=== PATIENT | male | born 1960 | race Caucasian/White ===

== ENCOUNTER → 2022-04-05 08:57 | Outpatient (BNVA) | payer OTHER, SELFPAY | PROVIDERS: Visit Provider Physician Assistant Medical | DX: R20.2 Paresthesia of skin (principal); M54.9 Dorsalgia, unspecified | CPT/HCPCS: 72100; 99203 ==

== ENCOUNTER → 2022-04-08 08:09 | Outpatient (BNVA) | payer OTHER, SELFPAY | PROVIDERS: Visit Provider Internal Medicine | DX: M54.9 Dorsalgia, unspecified (principal); R20.2 Paresthesia of skin | CPT/HCPCS: 99213 ==

== ENCOUNTER → 2022-04-15 07:51 | Outpatient (BNVA) | payer OTHER, SELFPAY | PROVIDERS: Visit Provider Internal Medicine | DX: M54.42 Lumbago with sciatica, left side (principal) | CPT/HCPCS: 99213 ==

== ENCOUNTER → 2022-04-30 07:53 | Outpatient (BNVA) | payer OTHER, SELFPAY | PROVIDERS: Visit Provider Internal Medicine | DX: M54.42 Lumbago with sciatica, left side (principal) | CPT/HCPCS: 99213 ==

== ENCOUNTER 2022-05-03 10:27 | Outpatient (REF) | payer OTHER, SELFPAY ==
--- NOTE | ~2022-05-03 | MR_ITS ---
EXAMINATION: MR LUMBAR SPINE WITHOUT CONTRAST CLINICAL INFORMATION: Bilateral lower extremity pain and numbness. COMPARISON: Lumbar spine radiographs 02/02/2023. TECHNIQUE: MRI of the lumbar spine was obtained using routine sequences without contrast. FINDINGS: There is grade 2 anterolisthesis of L4 on L5 that appears to be related to advanced facet degenerative changes at this level. Alignment is otherwise normal. Vertebral heights are preserved. There is minimal bone marrow edema involving the upper anterior corners of the L2 and L4 vertebral bodies. There is loss of intervertebral disc height and T2 signal intensity at multiple levels related to disc degeneration. The tip of the conus medullaris is located at L2. No mass effect on the conus. Visualized distal cord signal intensity is normal. At L1-L2 there is a slightly bulging disc. Bilateral facet degenerative change. No canal stenosis. No mass effect on the traversing or foraminal nerve roots. At L2-L3 there is a diffusely bulging disc. Bilateral facet degenerative change. Moderate canal stenosis. No mass effect on the traversing or foraminal nerve roots. At L3-L4 there is a diffusely bulging disc. Bilateral facet degenerative change. Moderate canal stenosis. Partial effacement of perineural fat with mild mass effect on the right L3 foraminal nerve root. At L4-L5 there is a large left foraminal protrusion superimposed upon a pseudodisc bulge. Advanced facet degenerative change. Extreme canal stenosis. Severe compression of the left L4 foraminal nerve root and moderate compression of the right L4 foraminal nerve root. At L5-S1 there is a bulging disc. Bilateral facet degenerative change. No canal stenosis. No mass effect on the traversing or foraminal nerve roots. Limited visualization of the retroperitoneal anatomy reveals no abnormal finding. Psoas and paraspinal muscle groups are symmetric. MR/MR lumbar spine wo con IMPRESSION: There is multilevel degenerative spondylosis of the lumbar spine with grade 2 anterolisthesis of L4 on L5 related to advanced facet degenerative changes at this level. At L4-L5 there is a large left foraminal protrusion superimposed upon a pseudodisc bulge causing extreme canal stenosis. There is also severe compression of the left L4 foraminal nerve root and moderate compression of the right L4 foraminal nerve root level. Moderate canal stenosis at L2-L3 and L3-L4.
== END 2022-05-03 10:28 | disposition home or self-care (01) ==
LOC: HO.MRI 10:27
PROVIDERS: Visit Provider Internal Medicine
DX: M79.605 Pain in left leg (principal); M79.604 Pain in right leg; R20.0 Anesthesia of skin
CPT/HCPCS: 72148

== ENCOUNTER 2022-05-04 10:00 | Outpatient (RCR) | payer OTHER, SELFPAY ==
--- NOTE | 2022-04-21 10:56 | MHC.PT.EP ---
[facility] [place] Office [place] Office [place] Office [address] [place] [address] [phone] F: [phone] F: [phone] F: [phone] F: [phone] Physical Therapy Plan of Care Date of Evaluation: Date of Surgery: Diagnosis: back pain, left leg sciatica Assessment: Patient is a 61 year old R handed male who presents with s/s consistent with sciatica, low back pain. 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 Patient past medical history includes back surgery 30 years ago. Current impairments include pain, flexibility, gait mechanics, posture, ROM, strength, activity tolerance and functional mobility. Functional limitations include decreased ability to transfers, walk, stand, lift, bend, and sleep. Patient is motivated with good rehab potential. Skilled PT will address impairments and functional limitations in order to achieve goals. Frequency and Duration: The patient will be seen 2x/week for 5 weeks Short Term Goals: I with HEP - 2 weeks Pain free full AROM - 3 weeks Able to walk 20 minutes without increased pain - 3 weeks Fabrication Lead Goals: TTP absent in piriformis - 5 weeks symmetrical gait patterns - 5 weeks Oswestry 10% or less - 5 weeks Pain free return to all work activities - 5 weeks Treatment Plan: Modalities to reduce pain, spasms and effusion. Manual therapy to restore motion and function. Therapeutic exercise to improve strength and flexibility. Neuromuscular re-education for posture and balance. Therapeutic activities to return to functional activities of daily living. Electronically signed by: Clint Zamora, PT Please sign and return to therapist. Thank you for your referral.
--- NOTE | 2022-08-02 08:56 | MHC.PT.DC ---
[facility] [place] Office [place] Office [place] Office [address] [place] [address] [phone] F: [phone] F: [phone] F: [phone] F: [phone] Physical Therapy Discharge Report Diagnosis: back pain, left leg sciatica Date of Surgery: Date of Evaluation: 04/21/22 Date of Discharge: 06/08/22 Treatments to Date: 4 Cancellations to Date: No Shows to Date: Discharge Status: Discharge Summary: Hold on PT due to MRI findings and lack of improvement. 05/04/22: pt has been feeling about the same with s/s. no change since last visit. MRI yesterday, awaiting results. 04/28/22: pt with reduced s/s since last visit. we added hip strength and SNG. no adverse reactions. MRI on Tuesday. 04/26/22: pt had painful response after last visit. we changed approach and he experience much less pain and improved ease of transfers. Patient is a 61 year old R handed male who presents with s/s consistent with sciatica, low back pain. 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 Patient past medical history includes back surgery 30 years ago. Current impairments include pain, flexibility, gait mechanics, posture, ROM, strength, activity tolerance and functional mobility. Functional limitations include decreased ability to transfers, walk, stand, lift, bend, and sleep. Patient is motivated with good rehab potential. Skilled PT will address impairments and functional limitations in order to achieve goals. Electronically signed by: Clint Zamora, PT Please sign and return to therapist. Thank you for your referral.
== END 2022-08-02 09:15 | disposition home or self-care (01) ==
LOC: HO.PTCHIC 10:00
PROVIDERS: Visit Provider Internal Medicine
DX: M54.50 Low back pain, unspecified (principal); M54.32 Sciatica, left side
CPT/HCPCS: 97110; 97140; 97161

== ENCOUNTER → 2022-05-11 12:57 | Outpatient (BNVA) | payer OTHER, SELFPAY | PROVIDERS: Visit Provider Internal Medicine | DX: M51.26 Other intervertebral disc displacement, lumbar region (principal); M48.05 Spinal stenosis, thoracolumbar region | CPT/HCPCS: 99213 ==

== ENCOUNTER → 2022-05-27 08:19 | Outpatient (BNVA) | payer OTHER, SELFPAY | PROVIDERS: Visit Provider Internal Medicine | DX: M51.16 Intervertebral disc disorders with radiculopathy, lumbar region (principal) | CPT/HCPCS: 99213 ==

== ENCOUNTER → 2022-06-24 14:16 | Outpatient (BNVA) | payer OTHER, SELFPAY | PROVIDERS: Visit Provider Internal Medicine | DX: M48.05 Spinal stenosis, thoracolumbar region (principal) | CPT/HCPCS: 99213 ==

== ENCOUNTER 2024-06-18 12:11 | Outpatient (REF) | payer BC, SELFPAY ==
[2024-06-18 16:08] LABS: Appearance Urine Clear; Color Urine Dark Yellow; Glucose Urine UA Negative (Negative); Leukocyte Esterase Urine Trace (Negative); Nitrite Urine Negative (Negative); Specific Gravity - Urine 1.025 (1.005-1.025); UMIC TRIGGER UACC YES; Urine Blood Negative (Negative); Urine Ketones Trace mg/dL (Negative); Urine Protein Trace mg/dL (Neg-Trace)
[2024-06-18 16:09] LABS: MANUAL DIFF FLAG NO
[2024-06-18 16:21] LABS: Basophils Percent Auto 0.4 % (0-2); Eosinophils Absolute Auto 0.1 X10*3/uL (0.0-0.4); Eosinophils Percent Auto 0.6 % (0-4); Hematocrit 47.6 % (42.0-52.0); Hemoglobin 16.4 g/dl (14.0-18.0); Imm Gran Abs Auto 0.04 X10*3/uL (0.00-0.03); Imm Gran Pct Auto 0.4 % (0.0-0.4); Lymphocytes Absolute Auto 2.3 X10*3/uL (1.2-4.9); Lymphocytes Percent Auto 22.7 % (20-40); Mean Corpuscular HGB Conc 34.5 g/dl (31.0-36.0); Mean Corpuscular Hemoglobin 31.7 pg (27.0-33.0); Mean Corpuscular Volume 91.9 fL (80.0-98.0); Mean Platelet Volume 9.7 fL (9.4-12.4); Monocytes Percent Auto 9.4 % (2-11); Neutrophils Absolute Auto 6.7 x10*3/uL (2.0-8.3); Neutrophils Percent Auto 66.5 % (45-73); Platelet Count 373 X10*3/uL (160-400); Red Blood Count 5.18 X10*6/uL (4.60-5.80); Red Cell Distribution Width 14.3 % (11.0-16.0); White Blood Count 10.1 X10*3/uL (4.8-10.8)
[2024-06-18 16:52] LABS: Alanine Aminotransferase 19 U/L (0-40); Albumin Level 4.2 g/dL (3.5-5.0); Alkaline Phosphatase 73 U/L (39-117); Anion Gap 14 (12-20); Aspartate Amino Transferase 25 U/L (5-37); Bilirubin Total 0.5 mg/dL (0.0-1.0); Blood Urea Nitrogen 11 mg/dL (9-16); Calcium 9.2 mg/dL (8.4-10.2); Carbon Dioxide 24 mmol/L (22-29); Chloride 105 mmol/L (96-108); Cholesterol 222 mg/dL (<200); Estimated Glomerular Filt Rate > 60; Glucose Fasting 102 mg/dL (60-99); HDL Cholesterol 74 mg/dL (>40); LDL Cholesterol Calculated 134 mg/dL (<100); Sodium 139 mmol/L (135-145); Triglycerides 72 mg/dL (<150)
[2024-06-18 16:54] LABS: TSH reflex Free T4 0.98 uIU/mL (0.32-4.0)
[2024-06-18 19:16] LABS: Bacteria Urine None Seen (None Seen); Hyaline Casts Urine 0-2 /LPF (0-2); RBC Urine 0-2 /HPF (0-2); Squamous Epithelial Cell Urine 0-2 /HPF (0-2); WBC Urine 0-5 /HPF (0-5)
== END 2024-06-18 12:12 | disposition home or self-care (01) ==
LOC: HO.HMGCLDS 12:11
PROVIDERS: PCP Nurse Practitioner Family; Visit Provider Nurse Practitioner Family
DX: Z00.01 Encounter for general adult medical examination with abnormal findings (principal); F17.210 Nicotine dependence, cigarettes, uncomplicated; Z12.5 Encounter for screening for malignant neoplasm of prostate
CPT/HCPCS: 36415; 80053; 80061; 81001; 84153; 84443; 85025; 96127

== ENCOUNTER 2024-06-18 12:11 | Outpatient (AMB) | payer BC, SELFPAY ==
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
[2024-06-18 12:44] VITALS: BP 136/78; PULSE 84; RESP 18; TEMP 36.8; O2SAT 95; BMI 25.8
== END 2024-06-18 13:17 | disposition home or self-care (01) ==
LOC: HO.HMCC 12:11
PROVIDERS: Visit Provider Nurse Practitioner Family
DX: Z12.11 Encounter for screening for malignant neoplasm of colon (principal); Z00.01 Encounter for general adult medical examination with abnormal findings; F17.200 Nicotine dependence, unspecified, uncomplicated; Z12.5 Encounter for screening for malignant neoplasm of prostate

== ENCOUNTER 2024-10-16 10:21 | Outpatient (AMB) | payer OTHER, SELFPAY ==
--- NOTE | 2024-10-16 10:25 | A.OFFVIS_ITS ---
Vital Signs 10/16/24 10:26 Height 5 ft 6 in Weight 166 lb BMI 26.8 BP 122/61 Blood Pressure Location Lt brachial Position Sitting Pulse 88 Pulse Oximetry (%) 98 Oxygen Delivery Method Room Air Intake Visit Reasons: Colonoscopy Screening Intake Note: Patient new consult for 1st pre Colonoscopy screening. Patient denies any GI issues for today. [employer] Day Worker Required: No Accompanied by: Spouse Allergies No Known Allergies Allergy (Verified 10/16/24 10:25) Medication List - Last Reconciled 10/16/24 by Apple Mares CNP No Known Home Meds HPI HPI Colonoscopy Screening: Details: Patient is a 63-year-old male with PMH of nicotine dependence. Referred by PCP colonoscopy screening This is his initial colonoscopy, as he has not had previous colorectal e xaminations such as fecal occult blood testing. The patient reports having bowel movements three times each morning. He characterizes them as soft and normal from his perspective and denies any blood presence in his stools, ongoing stomach pain, or gastrointestinal discomfort such as nausea and vomiting. He maintains a baseline weight range between 159- 155 lbs but has noticed some weight gain, attributing it to less meticulous eating habits. In terms of gastroesophageal reflux complaints, the patient occasionally experiences heartburn triggered by food intake and rarely undergoes episodes of regurgitation. A recent regurgitation episode occurred during sleep, which the patient associates with alcohol consumption. He denies regular issues with swallowing and reports a stable appetite, with no recent fever or illness history. The patient is not known to take any medication routinely for reflux, asserting that symptoms typically resolve independently. Patient denies: fever/chills, n/v, appetite changes, dysphasia, unintentional wt loss, ab pain or melena/hematochezia. 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 - family hx as below -denies personal hx of CA -denies significant cardiopulmonary history -tolerated anesthesia in the past without difficulty. PFSH Medical History (Updated 10/16/24 @ 11:02 by Apple Mares CNP) Acid reflux Hyperlipemia Surgical History History of back surgery Family History (Updated 10/16/24 @ 10:42 by Apple Mares CNP) Father Substance use disorder Liver disease Mother Pancreatic disease Diverticulosis Social History Housing: House Patient Tobacco Use Status: Current everyday Tobacco user Tobacco use type: Cigarette Cigarettes Per Day: 20 e-Cigarette/Vaping Use: Never Used service: No Current occupational status: employed Cognitive needs: No Hearing needs: No Vision needs: Yes Review of Systems Const Reports as per HPI ENT Reports as per HPI Card Reports as per HPI Resp Reports as per HPI GI Reports as per HPI Reports as per HPI Physical Exam Vital Signs: Oxygen Delivery Method Room Air 10/16/24 10:26 BMI result Body Mass Index 26.8 Const General: healthy appearing, no acute distress and well developed Nutritional Appearance: average body habitus Orientation/consciousness: patient oriented x3 HEENT Head: Yes normal to inspection, Yes normocephalic and Yes atraumatic Face and sinus: Yes normal facial exam Eyes General: appearance normal, both eyes and all related structures Neck Neck: Yes normal visual inspection Resp Effort & Inspection: normal respiratory effort, able to speak in complete sentences, no tracheal deviation and symmetric chest movement Cardio Jugular venous distension: no JVD Neuro General: patient oriented x3 Gait exam (Neuro): Normal gait present Psych Appearance: grossly normal Mental Status: mental status grossly normal Speech and movement: Normal speech and movement present Affect: normal affect Attitude: cooperative Thought process: Normal thought process present Thought content: Normal thought content present Insight: Good insight present (Psych) Judgement: Good judgement present (Psych) Assessment & Plan Assessment & Plan (1) Screening for colon cancer: Code(s): Z12.11 - Encounter for screening for malignant neoplasm of colon Category: Medical Plan: Due for index screening colonoscopy. No alarm features. Medications: -prescriptions for laxative tablets and MiraLax sent to pharmacy; instructions for Gatorade purchase and clear liquid diet given. Patient educated on scheduling process, procedure preparation, including avoiding certain foods and ensuring clear liquid intake Advised on necessity for ride post-procedure due to sedation. (2) Hyperlipemia: Code(s): E78.5 - Hyperlipidemia, unspecified Category: Medical Qualifiers: Hyperlipidemia type: mixed hyperlipidemia Qualified Code(s): E78.2 - Mixed hyperlipidemia Plan: Elevated cholesterol on 05/2024 labs.; no current pharmacologic therapy Additional Testing: Routine lipid monitoring per PCP Medication Management: Continue lifestyle modification (diet, exercise); no statin at present Lifestyle Recommendations: Emphasize reduction of saturated fats, processed fo ods, and alcohol; encourage regular physical activity Follow-Up: Monitor with PCP; reassess labs as scheduled (3) Acid reflux: Code(s): K21.9 - Gastro-esophageal reflux disease without esophagitis Category: Medical Qualifiers: Esophagitis presence: esophagitis presence not specified Qualified Code(s): K21.9 - Gastro-esophageal reflux disease without esophagitis Plan: Infrequent, food-related; no dysphagia, weight loss, or persistent symptoms Additional Testing: None indicated unless symptoms increase Medication Management: None needed; patient self-manages Lifestyle Recommendations: Avoid trigger foods, minimize alcohol Follow-Up: PRN if symptoms worsen or become frequent Plan Follow-up after colonoscopy as warranted or sooner if needed Time: I spent a total of 30 minutes on the date of encounter which includes: Preparing to see the patient (reviewed previous documentation, test results and medical history) Performing a medically appropriate exam and/or evaluation Ordering medications, tests, and procedures Documenting clinical information in the health record Medications: New polyethylene glycol 3350 (Miralax) per colonoscopy prep instructions 238 grams PO ONCE 238 grams 0RF bisacodyl (Dulcolax (bisacodyl)) Take four tablets pre colonoscopy instructions 20 mg (4 x 5 mg) PO ONCE 4 tabs 0RF 1 day Coding Level of Care Code New Pt New Pt Level 3 (24809) Patient Type New Diagnoses Screening for colon cancer Z12.11 Mixed hyperlipidemia E78.2 Hyperlipidemia type: mixed hyperlipidemia Gastroesophageal reflux disease, unspecified whether esophagitis present K21.9 Esophagitis presence: esophagitis presence not specified
[2024-10-16 10:26] VITALS: BP 122/61; PULSE 88; O2SAT 98; BMI 26.8
== END 2024-10-16 10:52 | disposition home or self-care (01) ==
LOC: HO.HGI 10:22
PROVIDERS: PCP Nurse Practitioner Family; Visit Provider Nurse Practitioner Family
DX: Z01.818 Encounter for other preprocedural examination (principal); Z12.11 Encounter for screening for malignant neoplasm of colon; E78.2 Mixed hyperlipidemia; K21.9 Gastro-esophageal reflux disease without esophagitis
CPT/HCPCS: S0285

== ENCOUNTER 2025-02-18 09:24 | Day surgery (SDC) | payer OTHER, SELFPAY ==
--- NOTE | 2025-02-12 13:08 | P.CONAN_ITS ---
Documented by User: Su Boss NP 02/12/25 13:20 HPI - Anesthesia Eval Consult details Narrative: 64 yr old male for colonoscopy +smokin pk per day PMFSH Active Problems Active Problems: All Active Problems Acid reflux (Acute) Hyperlipemia (Acute) Screening for prostate cancer (Acute) Smoker (Acute) Encounter for routine adult physical exam with abnormal findings (Acute) Screening for colon cancer (Acute) Back pain of lumbar region with sciatica (Acute ~03/31/22) Past Medical History Medical History Back pain of lumbar region with sciatica Tobacco use disorder Acid reflux Hyperlipemia Family History Family History Father Substance use disorder Liver disease Mother Pancreatic disease Diverticulosis Surgical History Surgical History History of back surgery Social History Social History Housing: House Patient Tobacco Use Status: Current everyday Tobacco user Tobacco use type: Cigarette Cigarette Packs Per Day: 1 Cigarettes Per Day: 20.0 e-Cigarette/Vaping Use: Never Used Use of substances other than those prescribed or required for medical reasons: Yes Substance Use Type Other:: smoked--LD this am Substance Use Frequency: Daily Are you DNR?: No Advance Directives: No Advance Directives Information Provided: Yes service: No Current occupational status: employed Cognitive needs: No Hearing needs: No Vision needs: Yes Meds Allergies Allergy/AdvReac Type Severity Reaction Status Date / Time No Known Allergies Allergy Verified 02/18/25 09:31 Home Medications ?Medication ?Instructions ?Recorded ?Confirmed ?Last Taken ?Type No Known Home Meds 02/18/25 02/18/25 Un known History Assessment and Plan Assessment Anesthesia Assessment: Chart Reviewed Documented by User: Elsi Quintero MD 02/18/25 09:50 PMFSH Past Medical History Medical History Back pain of lumbar region with sciatica Tobacco use disorder Acid reflux Hyperlipemia Family History Family History Father Substance use disorder Liver disease Mother Pancreatic disease Diverticulosis Family history of problems with anesthesia: No Surgical History Surgical History History of back surgery History of Problems with Anesthesia: No Social History Social History Housing: House Patient Tobacco Use Status: Current everyday Tobacco user Tobacco use type: Cigarette Cigarette Packs Per Day: 1 Cigarettes Per Day: 20.0 e-Cigarette/Vaping Use: Never Used Use of substances other than those prescribed or required for medical reasons: Yes Substance Use Type Other:: smoked--LD this am Substance Use Frequency: Daily Are you DNR?: No Advance Directives: No Advance Directives Information Provided: Yes service: No Current occupational status: employed Cognitive needs: No Hearing needs: No Vision needs: Yes Meds Allergies Allergy/AdvReac Type Severity Reaction Status Date / Time No Known Allergies Allergy Verified 02/18/25 09:31 Home Medications ?Medication ?Instructions ?Recorded ?Confirmed ?Last Taken ?Type No Known Home Meds 02/18/25 02/18/25 Un known History Exam Airway TM Dist: >3cm Neck ROM: Full Heart: rrr Lungs: cta Assessment and Plan Assessment Anesthesia Assessment: Anesthesia Plan Discussed Final Anesthetic Review Family History of Problems with Anesthesia: No History of Problems with Anesthesia: No NPO: Yes ASA Class: II Final Preanesthetic Review: No Changes in Pt Med Stat, Meds/Allgs Chart Reviewed, Consent Obtained/Reviewed and Anes Risks/Benef Reviewed Patient Risk: Intermediate (one pack /day smoker) Procedure Risk: Low Anesthetic Plan Anesthetic Plan: MAC: and Agree w/ Assess. and Plan Disposition: Standard PACU
[2025-02-13 08:30] VITALS: BMI 26.8
--- NOTE | 2025-02-18 09:20 | MHC.SHP ---
Pre-Procedural Eval Section A - 24 Hr Update-Section A only Date of Service: 02/18/25 The patient is an INPATIENT: No The patient has been examined within 24 hours of the surgical procedure. The History & Physical has been completed within 30 days and I have reviewed it.: No Section B - Complete if H&P > 30 days Chief Complaint: screening Relevant Family History (Specify if Yes): No Relevant Social History: Tobacco Use Present Medications: see Short Stay Collaborative assessment Medical History: Significant History (Acid reflux Hyperlipemia) History of Previous Operations: Relevant previous surgery/procedure and date(s) (History of back surgery) Allergies: Allergies Allergy/AdvReac Type Severity Reaction Status Date / Time No Known Allergies Allergy Verified 10/16/24 10:25 Review of Systems Sugical H&P ROS: Negative: Constitution, Cardiovascular, Respiratory and Gastrointestinal Exam Surgical H&P Exam: Normal: Heart, Normal: Lungs, Normal: Extremities and Normal: Abdomen Plan Diagnosis/Plan: Unchanged I have reviewed the history and physical and performed a pertinent physical examination on my patient. No changes have occurred unless specified. Time Spent With Patient Time: Total time managing care of this patient today ____ minutes.
[2025-02-18 09:31] VITALS: BMI 25.7
[2025-02-18 09:37] VITALS: BP 124/73; PULSE 79; RESP 15; TEMP 36.9; O2SAT 96
[2025-02-18] MEDS: Lactated Ringers 1,000 ML 100 ML IVCONT (09:52)
[2025-02-18] MEDS: Albuterol Sulfate (0.083%) 2.5 MG/3 ML VIAL.NEB INHALE (09:58)
[2025-02-18 09:59] VITALS: PULSE 79; RESP 15; O2SAT 97
--- NOTE | 2025-02-18 11:35 | P.OPN-COLO_ITS ---
Colonoscopy Operative Note Operative Note Date of Service: 02/18/25 Narrative: COLONOSCOPY TILL CECUM WITH SNARE POLYPECTOMY, SUBMUCOSAL INJECTION AND HEMOCLIP PLACEMENT Pre-op diagnosis: Colon cancer screening (First colon). Post-op diagnosis:? colon polyp, Diverticulosis, hemorrhoids Endoscopist:? Sweta Garcia MD Anesthesia:?MAC Consent: Indications for the procedure and potential complications of bleeding, perforation, reaction to medications and missed diagnosis were discussed with the patient and informed consent was obtained. Instrument: Olympus PCF H 190 L variable stiffness pediatric colonoscope Monitoring: Vital signs and clinical assessment, intermittent blood pressure monitoring, continuous EKG monitoring, Pulse oximetry and Carbon Dioxide monitoring were done throughout the procedure. Please see anesthesia flowsheet. Colon withdrawl time was 28 minutes. Procedure: The patient was placed in the left lateral decubitis position and pre-procedure medications were administered. After a digital rectal examination of the ano-rectum, the video colonoscope was inserted into the rectum and advanced through the colon to the cecum. The colonoscope was slowly withdrawn in a retrograde panoramic fashion and the colon mucosa was carefully examined including a retroflexed view of the rectum. Findings and interventions are described below. Procedure Difficulty: without difficulty Findings: Terminal Ileum: Not evaluated Cecum: Normal Ascending Colon: A 2.5 cms sessile polyp in the proximal AC at 80 cms. Polyp was raised with 4 cc of Eleview and removed with a hot snare. Polypectomy site was closed with 1 hemoclip and marked with Isabel ink. Transverse Colon: Normal Descending Colon: Moderate diverticulosis Sigmoid Colon: Moderate diverticulosis Rectum: Normal Ano-rectum: Moderate internal hemorrhoids Colon preparation: Good after some irrigation. [place] Bowel Preparation Scale Right colon; 2 Transverse colon: 2 Left colon; 2 (0 = Unprepared colon segment with mucosa not seen due to solid stool that cannot be cleared. 1 = Portion of mucosa of the colon segment seen, but other areas of the colon segment not well seen due to staining, residual stool and/or opaque liquid. 2 = Minor amount of residual staining, small fragments of stool and/or opaque liquid, but mucosa of colon segment seen well. 3 = Entire mucosa of colon segment seen well with no residual staining, small fragments of stool or opaque liquid) Impression and Post Procedure Diagnosis: Colonoscopy Findings: One medium sized polyp was removed Moderate diverticulosis seen in the left colon Moderate hemorrhoids on retroflexed exam. Plan: I will send a letter with biopsy results. Repeat Colonoscopy in 6 to 12 months if polyps are adenomatous (to check polypectomy site) and 10 year if polyps are hyperplastic. Above findings were reviewed with the patient and relevant handouts were given and the discharge area. BIOPSIES SHOWED: Colon, ascending at 80 cm, polyp: Tubular adenoma; negative for high-grade dysplasia and carcinoma. Letter sent to the patient with biopsy results. Patient was placed on the colonoscopy recall list for follow-up colonoscopy in 6 - 12 months
[2025-02-18 11:37] VITALS: BP 109/50; PULSE 88; RESP 20; TEMP 36.3; O2SAT 96
[2025-02-18 11:52] VITALS: BP 155/78; PULSE 73; RESP 16; TEMP 36.1; O2SAT 96
== END 2025-02-18 12:20 | disposition home or self-care (01) ==
PROVIDERS: PCP Nurse Practitioner Family; Visit Provider Internal Medicine Gastroenterology
PROC: 0DJD8ZZ Inspection of Lower Intestinal Tract, Via Natural or Artificial Opening Endoscopic (ICD-10-PCS; CPT 45378; principal; 2025-02-18 11:00)
DX: Z12.11 Encounter for screening for malignant neoplasm of colon (principal); K57.30 Diverticulosis of large intestine without perforation or abscess without bleeding; K64.8 Other hemorrhoids; D12.2 Benign neoplasm of ascending colon
CPT/HCPCS: 45385; 45381; 88305; 94640; J2003; J2704; J3010

== ENCOUNTER → 2025-02-18 09:24 | Outpatient (BNV) | payer OTHER, SELFPAY | PROVIDERS: PCP Nurse Practitioner Family; Visit Provider Internal Medicine Gastroenterology | DX: Z12.11 Encounter for screening for malignant neoplasm of colon (principal); K63.5 Polyp of colon; K57.90 Diverticulosis of intestine, part unspecified, without perforation or abscess without bleeding; K64.8 Other hemorrhoids | CPT/HCPCS: 45385 ==